=== PATIENT | female | born 1960 | race Caucasian/White ===

== ENCOUNTER 2021-09-01 08:06 | Day surgery (SDC) | payer BC, SELFPAY ==
[~2021-09-01] VITALS: Ht 172.7 cm; Wt 122.5 kg
[2021-09-01] MEDS ORDERED: KETOROLAC TROMETHAMINE 30 MG VIAL IVP ONE (09:59)
[2021-09-01] MEDS ORDERED: SUCCINYLCHOLINE CHLORIDE 20 MG/ML(QUELICIN) IVP ONE (09:59)
[2021-09-01] MEDS ORDERED: GLYCOPYRROLATE 0.2 MG/ML VIAL IJ ONE (09:59)
[2021-09-01] MEDS ORDERED: MORPHINE SULFATE 10 MG/ML VIAL IVP ONE (09:59)
[2021-09-01] MEDS ORDERED: LR 1,000 ML IV.SOLN IV ONE (09:59)
[2021-09-01] MEDS ORDERED: PROPOFOL 200MG/ 20ML VIAL (DIPRIVAN) IV ONE (09:59)
[2021-09-01] MEDS ORDERED: DEXAMETHASONE SOD PHOSPHATE 4 MG/ML VIAL IVP ONE (09:59)
[2021-09-01] MEDS ORDERED: LABETALOL 100 MG/ 20ML VIAL IVP ONE (09:59)
[2021-09-01] MEDS ORDERED: ROCURONIUM BROMIDE 10 MG/ML (ZEMURON) IV ONE (09:59)
[2021-09-01] MEDS ORDERED: ePHEDrine sulfate 50 MG/ML VIAL IVP ONE (09:59)
[2021-09-01] MEDS ORDERED: SEVOFLURANE 15 MIN GAS INH ONE (09:59)
[2021-09-01] MEDS ORDERED: WATER FOR IRRIGATION,STERILE 1,000 ML IRRIG.SOLN IR ONE (09:59)
[2021-09-01] MEDS ORDERED: MEPERIDINE 50 MG/ML VIAL IM ONE (09:59)
[2021-09-01] MEDS ORDERED: OXYCODONE/ACETAMINOPHEN 5-325 TABLET PO PRN ×2 (10:45)
[2021-09-01] MEDS ORDERED: ONDANSETRON HCL 4 MG/2 ML VIAL IM PRN (10:45)
[2021-09-01] MEDS ORDERED: IBUPROFEN 800 MG TABLET PO PRN (10:45)
[2021-09-01 13:34] VITALS: BP_SYST 104
== END 2021-09-01 13:15 | disposition home or self-care (01) ==
LOC: SDS 08:06 → SMU 08:08 → SDS 13:15
PROVIDERS: ATTEND Obstetrics & Gynecology
DX: N95.0 Postmenopausal bleeding (principal); N84.0 Polyp of corpus uteri; R93.89 Abnormal findings on diagnostic imaging of other specified body structures; G47.33 Obstructive sleep apnea (adult) (pediatric); I10 Essential (primary) hypertension; K21.9 Gastro-esophageal reflux disease without esophagitis; E78.5 Hyperlipidemia, unspecified; E66.01 Morbid (severe) obesity due to excess calories; Z68.41 Body mass index [BMI] 40.0-44.9, adult; Z79.899 Other long term (current) drug therapy; Z99.89 Dependence on other enabling machines and devices; Z20.822 Contact with and (suspected) exposure to COVID-19
CPT/HCPCS: 58558; 88305; C1819; J0330; J1100; J1885; J2175; J2270; J2704; J3490 ×2; J7120; U0003